=== PATIENT | female | born 1970 | race African-American/Black ===

== ENCOUNTER 2023-12-15 14:56 | Outpatient (CLI) | payer OTHER, SELFPAY ==
--- NOTE | ~2023-12-15 | US_ITS ---
US renal BI 12/15/2023 15:30 Procedure: Realtime transabdominal ultrasound of the kidneys and bladder. Indication: Abnormal labs Comparison: No prior studies for comparison. Findings: Renal echotexture is normal bilaterally without hydronephrosis, contour deforming mass or r enal calculus. The right kidney measures 11.6 cm and left kidney measures 10.8 cm. Bladder within no rmal limits. Impression: 1: Unremarkable renal ultrasound. No stones, masses or hydronephrosis. Reviewed, dictated and finalized at location B. Impression: 1: Unremarkable renal ultrasound. No stones, masses or hydronephrosis.
== END 2023-12-15 14:57 | disposition home or self-care (01) ==
LOC: ANHIMG 15:01
PROVIDERS: PCP Physician Assistant; Visit Provider Physician Assistant
DX: R79.89 Other specified abnormal findings of blood chemistry (principal)
CPT/HCPCS: 76775